=== PATIENT | male | born 1955 | race Caucasian/White ===

== ENCOUNTER 2017-05-02 15:03 | Emergency (ER) | payer MEDICARE, OTHER ==
--- NOTE | 2017-05-02 15:31 | RAD ---
CHEST ONE VIEW: 05/02/17 HISTORY: Dyspnea. Fever. Altered mental status. COMPARISON: CT chest 02/09/16. FINDINGS: Lungs are clear. No pneumothorax or effusion. Cardiac silhouette and mediastinal contours are unrema rkable. IMPRESSION: No acute intrathoracic abnormality. POS: OFF
[2017-05-02] MEDS ORDERED: Lorazepam 2 MG/ML VIAL ONE (15:58)
== END 2017-05-02 16:36 | disposition hospice, inpatient (51) ==
LOC: ERS 15:03
DX: D75.1 Secondary polycythemia (principal)
CPT/HCPCS: 71010; 87040; 93005; 94640; 94760; 96361; 96374; J2060; J7620

== ENCOUNTER 2017-05-20 17:34 | Emergency (ER) | payer MEDICARE, OTHER | END 2017-05-20 20:30 | disposition home or self-care (01) | LOC: ERS 17:34 | DX: R50.9 Fever, unspecified (principal) | CPT/HCPCS: 99283 ==